=== PATIENT | male | born 1950 | race Caucasian/White ===

== ENCOUNTER 2025-03-06 09:58 | Emergency (ER) | payer MEDICARE, BC ==
[2025-03-06] MEDS ORDERED: GASTROGRAFIN 30 ML BOT ONE (11:59)
== END 2025-03-06 11:45 | disposition home or self-care (01) ==
LOC: ERS 09:58
DX: Z43.1 Encounter for attention to gastrostomy (principal); E03.9 Hypothyroidism, unspecified; Z79.890 Hormone replacement therapy
CPT/HCPCS: 43762; 74018; Q9963